=== PATIENT | female | born 1935 | race African-American/Black ===

== ENCOUNTER 2016-11-12 00:13 | Emergency (ER) | payer MEDICARE, MEDICAID ==
[~2016-11-12] VITALS: Ht 165.1 cm; Wt 49.9 kg
[2016-11-12 00:15] VITALS: BP 150/76
[2016-11-12] MEDS ORDERED: Acetaminophen 500mg (ES) tab ORAL ONE (00:30)
--- NOTE | 2016-11-12 00:40 | Emergency Room Report ---
History of Present Illness General Chief Complaint: Multiple Trauma/Fall Source: Patient Present Illness HPI This is an 81-year-old female with a history colon cancer. She is currently undergoing chemotherapy. She presents with chief complaint of head injury and back pain secondary to a fall. She was sleeping and she will off the bed. He her head and her back. Mild pain. No loss of consciousness. She's only taken an aspirin. Denies any anticoagulations. No other injury. She called 911. Allergies: Uncoded Allergies: unk cancer med (Allergy, Unknown, 11/12/16) Patient History Past Medical History: see triage record, old chart reviewed Past Surgical History: other Pertinent Family History: none Social History: Denies: smoking Now: No Immunizations: other Reviewed Nursing Documentation: PMH: Agreed, PSxH: Agreed Nursing Documentation-PMH Hx Hypertension: Yes Hx Diabetes: Yes Hx Cancer: Yes - COLON CA Review of Systems Eye: Denies: blurred vision, eye pain ENT: Denies: ear pain, nose congestion, throat swelling Respiratory: Denies: cough, shortness of breath Cardiovascular: Denies: chest pain, palpitations Gastrointestinal: Denies: abdominal pain, diarrhea, nausea, vomiting Musculoskeletal: Denies: back pain, joint pain Skin: Denies: rash Neurological: Denies: headache, numbness Endocrine: Denies: increased thirst, increased urine Hematologic/Lymphatic: Denies: easy bruising All Other Systems: negative except mentioned in HPI Physical Exam Vital Signs Date Time Temp Pulse Resp B/P Pulse Ox O2 Delivery O2 Flow Rate FiO2 11/12/16 00:09 97.2 69 16 150/76 100 Room Air vitals with hypertension Sp02 EP Interpretation: reviewed, normal General Appearance: well appearing, no apparent distress, alert Head: normocephalic, atraumatic, other - Mild tenderness to the occiput. No hematoma Eyes: bilateral eye EOMI, bilateral eye PERRL ENT: hearing grossly normal, normal pharynx Neck: full range of motion, supple, no meningismus Respiratory: chest non-tender, lungs clear, normal breath sounds Cardiovascular #1: regular rate, rhythm, no murmur Gastrointestinal: normal bowel sounds, non tender, no mass, no organomegaly, no bruit, non-distended Musculoskeletal: back normal - Mild tenderness to the lower lumbar. No deformity. No midline tenderness., normal range of motion, other - Left leg with edema. Per patient, this has been chronic for a long time. Workup has been negative for DVT. Neurologic: alert, oriented x3 Psychiatric: mood/affect normal Skin: warm/dry Medical Decision Making Diagnostic Impression: Primary Impression: Head injury, acute Qualified Codes: S09.90XA - Unspecified injury of head, initial encounter Additional Impression: Lumbar back pain Qualified Codes: M54.5 - Low back pain ER Course Patient with minor injury from a fall. No fracture or internal bleeding. We' ll discharge home. CT/MRI/US Diagnostic Results CT/MRI/US Diagnostic Results : Imaging Test Ordered: CT head and CT L spine Impression negative per radiologist. CT lumbar spine: No acute fracture per radiologist Last Vital Signs Date Time Temp Pulse Resp B/P Pulse Ox O2 Delivery O2 Flow Rate FiO2 11/12/16 00:09 97.2 69 16 150/76 100 Room Air Status: improved Disposition: HOME, SELF-CARE Condition: Stable Additional Instructions: Followup with your doctor in 7 days. Return if symptom worsen. JULIO MCDANIEL M.D. Nov 12, 2016 00:39
[2016-11-12 02:15] VITALS: BP 164/79
[2016-11-12 03:15] VITALS: BP 162/75
[2016-11-12 03:40] VITALS: BP 162/75
--- NOTE | 2016-11-12 14:38 | Diagnostic Imaging Report ---
Indication: TRAUMA, status post fall Technique: spiral acquisitions obtained through the brain. Angled axial and coronal 5 x 5 mm slices were reconstructed. No IV contrast utilized. Radiation dose was minimized using automated exposure control Total dose length product 1403 mGycm. CTDIvol(s) 70 mGy Comparison: none FINDINGS: No acute hemorrhage or edema. No mass effect or midline shift. There is age-related enlargement of the ventricles and extra axial CSF spaces. There is minimal periventricular deep white matter ischemic change. Normal ohara-white differentiation. Is evidence of prior bilateral cataract surgery. Visualized sinuses are unremarkable. Intact calvarium. 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 Negative for acute intracranial bleed or mass effect This agrees with the preliminary interpretation provided overnight by [facility]. The CT scanner at [facility] is accredited by the [employer] and the scans are performed using protocols designed to limit radiation exposure to as low as reasonably achievable to attain images of sufficient resolution adequate for diagnostic evaluation
--- NOTE | 2016-11-14 08:19 | Diagnostic Imaging Report ---
Indications: TRAUMA, pain Technique: Spiral acquisitions obtained through the lumbar spine. Multiplanar reconstructions were generated. No IV contrast utilized. Total dose length product 362 mGycm. 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 As the neural foramina of the transitional lumbosacral segment appear more sacral than lumbar, this will be considered S1. There is grade 1 to spondylolisthesis of L5 on S1. No associated pars defect. The remainder of the bony alignment is normal. There is severe degenerative disc narrowing L5-S1, less severe at S1-S2. There is ankylosis of the L5-S1 and S1-S2 facets, possibly by bone graft material.. There is absence of the L5 and S1 spinous processes, as well as and laminectomy/laminotomy defect posterior to the S2 vertebral body. No acute fractures. No dislocations. The vertebral body heights are preserved. The remaining disc spaces are preserved. There is vacuum formation within the L3-4 disc. At T12-L1 and L1-L2, no significant disc bulge or protrusion, spinal stenosis, or neural foraminal stenosis. At L2-3 there is very mild circumferential annular bulge, which results in very slight narrowing of the spinal canal and very slight compromise of the left neural foramen. At L3-4 there is circumferential annular bulge. This, in combination with marked ligamentum flavum hypertrophy, results in mild narrowing of the spinal canal, less than one third of its diameter. There is mild to moderate neural foraminal compromise bilaterally, due to facet hypertrophy and the bulging disc. At L4-5, only minimal disc bulge or protrusion. There is, however, marked ligamentum flavum hypertrophy which results in mild spinal stenosis. There is mild to moderate left neural foraminal stenosis. At L5-S1, the above-mentioned alignment abnormality results in mild spinal stenosis. There is mild right neural foraminal narrowing due to facet hypertrophy. At S1-S2, there is, as previously mentioned, a laminotomy defect. There is a lumbar type is which has posterior osteophytes which do not significantly narrow the spinal canal. The neural foramina are preserved. 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 There is extensive colonic diverticulosis. There is considerable retained fecal material within the colon. There is a 5 cm right upper pole renal cyst. 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 The CT scanner at [facility] is accredited by the [employer] and the scans are performed using protocols designed to limit radiation exposure to as low as reasonably achievable to attain images of sufficient resolution adequate for diagnostic evaluation.
== END 2016-11-12 03:15 | disposition home or self-care (01) ==
LOC: EDBD 00:13 → EMR 01:03
DX: S09.90XA Unspecified injury of head, initial encounter (principal); M54.5 Low back pain; I10 Essential (primary) hypertension; E11.9 Type 2 diabetes mellitus without complications; C18.9 Malignant neoplasm of colon, unspecified; W06.XXXA Fall from bed, initial encounter; Y92.003 Bedroom of unspecified non-institutional (private) residence as the place of occurrence of the external cause; Y99.8 Other external cause status
CPT/HCPCS: 70450; 72131; 99284